=== PATIENT | male | born 1995 | race Two or more races ===

== ENCOUNTER 2021-07-24 13:43 | Emergency (ER) | payer OTHER ==
[~2021-07-24] VITALS: Ht 185.4 cm; Wt 99.8 kg
[2021-07-24] MEDS ORDERED: NORFLEX100MG PO (18:06)
== END 2021-07-24 18:12 | disposition home or self-care (01) ==
LOC: ER 13:43
DX: M54.59 Other low back pain (principal)

== ENCOUNTER 2021-11-05 02:52 | Emergency (ER) | payer OTHER ==
[~2021-11-05] VITALS: Ht 185.4 cm; Wt 99.8 kg
[~2021-11-05 02:52] MED LIST: NORFLEX100MG PO
[2021-11-05] MEDS ORDERED: NORFLEX100MG PO (03:16)
[2021-11-05] MEDS ORDERED: DICLOFENAC SODI75 MG PO (03:16)
== END 2021-11-05 03:25 | disposition home or self-care (01) ==
LOC: ER 02:52
DX: M54.2 Cervicalgia (principal)

== ENCOUNTER 2022-01-18 17:18 | Emergency (ER) | payer OTHER ==
[~2022-01-18] VITALS: Ht 185.4 cm; Wt 102.5 kg
[~2022-01-18 17:18] MED LIST changes: +DICLOFENAC SODI75 MG PO
[2022-01-18] MEDS ORDERED: OSEL75CA PO (21:28)
== END 2022-01-18 22:42 | disposition home or self-care (01) ==
LOC: ER 17:18
DX: J10.1 Influenza due to other identified influenza virus with other respiratory manifestations (principal); Z20.822 Contact with and (suspected) exposure to COVID-19